=== PATIENT | female | born 1935 | race Caucasian/White ===

== ENCOUNTER 2016-05-11 09:12 | Emergency (ER) | payer MEDICARE ==
[2016-05-11 09:21] VITALS: TEMP 98; BMI 25.3
--- NOTE | 2016-05-11 09:37 | EDPRACDOC ---
- General Information Chief Complaint: Flu-Like Symptoms Stated Complaint: COUGH Time Seen by Provider: 05/11/16 09:24 Information Source: Patient Mode Of Arrival: Car Home Medications: Home Medications Aspirin [Aspir 81] 81 mg PO QAM 05/19/12 Fexofenadine HCl [Yesenia Allergy] 180 mg PO HS 05/19/12 Glucosamine Sulfate 2Kcl [Glucosamine] 1 tab PO .DAILY@NOON 06/17/12 Carvedilol [Coreg] 3.125 mg PO BID 08/23/14 Levothyroxine [Synthroid, Levoxyl] 100 mcg PO QAM 08/23/14 Multivitamin [Multiple Vitamins] 1 each PO .DAILY@NOON 08/23/14 Polyethylene Glycol 3350 [Miralax] 17 gm PO DAILY 01/28/15 Atorvastatin Calcium [Lipitor] 40 mg PO HS 03/03/16 Allergies/Adverse Reactions: Allergies Allergy/AdvReac Type Severity Reaction Status Date / Time morphine Allergy Nausea/Vomi Verified 05/11/16 09:20 ting povidone-iodine Allergy Rash-Genera Verified 05/11/16 09:20 [From Betadine] lized soap [From Betadine] Allergy Rash-Genera Verified 05/11/16 09:20 lized - History of Present Illness Onset: THUR HPI: COUGH X 1 WEEK. NONSMOKER. NO FEVER. SOME SOB. WHITE SPUTUM. Current Symptoms: Reports: Cough Shortness of Breath: Mild Rhinorrhea: Reports: None Ear Symptoms: Reports: None Fever Severity/Quality: Reports: no fever - Treatment Prior to ED Arrival Reported Medications/Treatment MANAGER POLICY Treated With Medication MANAGER POLICY YES Medications MANAGER POLICY (Medication/ DELYSM [id number] Dose/Time) ED Past Medical History - History Reviewed Yes Nurses notes reviewed and agree except as marked - Patient Medical History Cardiac History: Reports: Hypertension, Heart Attack (04/02), Cardiac Catheterization (NO STENTS), Hypercholesterolemia Respiratory History: Reports: Asthma, COPD, Chronic Bronchitis, Pneumonia (JAN 2015), Emphysema GI/ History: Reports: Urinary Tract Infection, Gastroesophageal Reflux Musculoskeletal History: Reports: Arthritis (HANDS) Psychological History: Denies: Depression, Substance Use Disorder Systemic History: Reports: Hypothyroidism. Denies: Cancer Surgical History: Reports: Appendectomy, Cholecystectomy (Lap shekhar April 2012.), Hysterectomy, Cardiac Catheterization (NO STENTS). Denies: Tonsillectomy/Adnoidectomy - Family Medical History Reports: Cardiac Disorders (MOTHER AND FATHER). Denies: Hypertension, Diabetes , Cancer, Stroke - Social Medical History Smoking Status: Never smoker Social History: Denies: Substance Use Disorder EDM Review of Systems - Review of Systems ROS Negative Except as Marked: Yes All systems reviewed and were negative except as marked - Physical Exam Constitutional: Alert (Awake), No apparent distress Oriented to: Time, Person, Place Last recorded Vital Signs: Last Vital Signs Temp 98.0 F 05/11/16 09:16 Pulse 72 05/11/16 09:20 Resp 16 05/11/16 09:20 BP 139/76 05/11/16 09:20 Pulse Ox 97 05/11/16 09:20 Oxygen Pulse Oxygen Saturation 97 O2 Device Oxygen Flow Rate Fraction of Inspired Oxygen ( FIO2) - HEENT Head: Normal ( normocephalic) Eye Exam: Normal (PERRL, EOMI, Sclera white) Oropharynx: Normal (Pharynx:Moist without exudate,Gums-no swelling) Nose: No Symptoms Reported (septum midline) Neck: Normal (FROM, trachea at midline) - Respiratory/Cardiovascular Respiratory: Normal - CTA (BBS clear to auscultation without adventitious sounds ) Cardiovascular: Normal (RRR without murmur, gallop or rub) - GI Auscultation: Normal (NABS) Palpation: Normal (Soft,No rebound or guarding, non distended) Tenderness: Non tender Gordon's Sign: Negative - Musculoskeletal Back: Normal (Non-Tender) Extremities: Normal (Normal tone, Pulses 2+ No cyanosis or edema, FROM) - Integumentary Skin: Normal, Warm, Dry Lymphatics: Normal (no adenopathy) - Neurologic Memory Impaired: Normal Motor Function: Normal (Normal tone, Pulses 2+ No cyanosis or edema, FROM) Cranial Nerve: Normal (CN II-X11 intact sensation, strength 5/5) Cerebellar: Normal Mood Description: Normal Perception: Normal Decision Time to Discharge: 10:34 - Departure Yes I personally saw and evaluated the patient. Disposition: Home Condition: Stable Final Diagnosis: Bronchitis Instructions: Acute Bronchitis (ED) Education/Counseling Given To: Patient, Family Member Education/Counseling Given Regarding: Diagnosis Referrals: None,No Provider [Primary Care Provider] - One Week
[2016-05-11] MEDS ORDERED: BENZONATATE 100 MG PERLES PO ONE ×2 (09:39→09:44)
--- NOTE | 2016-05-11 10:29 | DIRPT ---
CLINICAL DATA: Cough and congestion for 1 week EXAM: CHEST - 2 VIEW COMPARISON: 03/03/2016 FINDINGS: Cardiac shadow is stable. Some persistent thickening of the minor fissure is noted stable from the prior exam. No acute infiltrate or sizable effusion is seen. No bony abnormality is noted. IMPRESSION: No acute abnormality seen. Electronically Signed By: Lito Pearson M.D. On: 05/11/2016 10:27
[2016-05-11 10:45] VITALS: BP 184/74; PULSE 78
== END 2016-05-11 10:45 | disposition home or self-care (01) ==
LOC: ED 09:12
DX: J44.9 Chronic obstructive pulmonary disease, unspecified (principal); I10 Essential (primary) hypertension; J45.909 Unspecified asthma, uncomplicated; E03.9 Hypothyroidism, unspecified; Z79.82 Long term (current) use of aspirin; Z79.899 Other long term (current) drug therapy
CPT/HCPCS: 71020; 99283; A9270; J3490